=== PATIENT | female | born 1935 | race Caucasian/White ===

== ENCOUNTER 2021-06-24 13:29 | Inpatient (IN) | payer MEDICAID ==
[~2021-06-24] VITALS: Ht 142.2 cm; Wt 43.1 kg
[2021-06-24] MEDS ORDERED: ONDANSETRON HCL 4MG/2ML INJ IV STA (15:19)
[2021-06-24] MEDS ORDERED: SODIUM CHLORIDE 0.9% 1,000 ML IV ONE (15:30)
[2021-06-24 16:01] LABS: BASOPHILS % 0.3 % (0.0-2.0); EOSINOPHILS % 0.2 % (0.0-5.0); HEMATOCRIT. 37.7 % (36.0-48.0); HEMOGLOBIN. 12.6 g/dL (12.0-16.0); LYMPHOCYTES % 45.8 % (20.0-50.0); MEAN CORPUSCULAR HEMOGLOBIN 28.8 pg (28.0-32.0); MEAN CORPUSCULAR VOLUME 85.9 fL (81.0-99.0); MEAN PLATELET VOLUME 7.7 fl (7.4-10.4); MONOCYTES % 5.4 % (2.0-8.0); NEUTROPHILS % 48.3 % (40.0-76.0); PLATELET 471 x1000/uL (130-400); RED BLOOD CELL COUNT 4.39 mill/uL (4.2-5.4); RED CELL DISTRIBUTION WIDTH 16.9 % (11.6-14.6)
[2021-06-24 16:06] LABS: CHLORIDE 101 mEq/L (98-107)
[2021-06-24] MEDS ORDERED: IOHEXOL-300 100 ML BOTTLE ONE (18:18)
[2021-06-24] MEDS ORDERED: PIPERACILLIN/TAZ 3.375G PREMIX 50 ML IV ONE (18:30)
[2021-06-24 20:55] VITALS: BP 120/61
[2021-06-24 21:00] VITALS: BP 120/61
[2021-06-24] MEDS ORDERED: CEFTRIAXONE 1 G PREMIX 50 ML IV SCH (21:45)
[2021-06-24] MEDS ORDERED: IPRATROPIUM/ALBUTEROL 0.5-3(2.5)MG/3ML NEB NEB PRN (21:45)
[2021-06-24] MEDS ORDERED: HYDROCODONE/ACETAMINOPHEN 5/325MG TABLET PO PRN (21:45)
[2021-06-24] MEDS ORDERED: ONDANSETRON HCL 4MG/2ML INJ IV PRN (21:45)
[2021-06-24] MEDS: SODIUM CHLORIDE 0.9% 1,000 ML IV SCH (21:45)
[2021-06-24] MEDS ORDERED: CLONIDINE 0.1MG TABLET PO PRN (21:45)
[2021-06-24] MEDS ORDERED: DOCUSATE SODIUM 100MG CAPSULE PO PRN (21:45)
[2021-06-24 23:28] LABS: CHLORIDE 104 mEq/L (98-107)
[2021-06-25] VITALS: BP 126/58
[2021-06-25] MEDS: CEFTRIAXONE 1,000 MG in DEXTROSE 5% WATER 50 ML IV SCH ×2 (00:17→20:46)
[2021-06-25] MEDS: ENOXAPARIN 30MG/0.3ML SYR SUBCUT SCH ×2 (00:17→20:46)
[2021-06-25] MEDS: METRONIDAZOLE 500 MG PREMIX 100 ML IV SCH ×3 (01:13→13:58)
[2021-06-25 04:00] VITALS: BP 100/64
[2021-06-25 06:57] LABS: BASOPHILS % 0.6 % (0.0-2.0); EOSINOPHILS % 0.5 % (0.0-5.0); HEMATOCRIT. 32.2 % (36.0-48.0); LYMPHOCYTES % 35.2 % (20.0-50.0); MEAN CORPUSCULAR HEMOGLOBIN 29.4 pg (28.0-32.0); MEAN PLATELET VOLUME 8.1 fl (7.4-10.4); MONOCYTES % 10.8 % (2.0-8.0); NEUTROPHILS % 52.9 % (40.0-76.0); PLATELET 350 x1000/uL (130-400); RED BLOOD CELL COUNT 3.75 mill/uL (4.2-5.4); RED CELL DISTRIBUTION WIDTH 15.6 % (11.6-14.6)
[2021-06-25 08:00] VITALS: BP 121/70
[2021-06-25] MEDS ORDERED: KCL 20MEQ/100ML PREMIX 100 ML IV ONE (10:00)
[2021-06-25] MEDS ORDERED: LOPE2CAP14 PO (10:23)
[2021-06-25] MEDS ORDERED: AMLO10TA80 MT (10:23)
[2021-06-25] MEDS ORDERED: MECL-217 MT (10:23)
[2021-06-25] MEDS ORDERED: ALBU6.7H9 INH (10:23)
[2021-06-25] MEDS ORDERED: PANT40TA51 MT (10:23)
[2021-06-25] MEDS ORDERED: ONDA4TAB50 MT (10:23)
[2021-06-25] MEDS ORDERED: PROM6.254 MT (10:23)
[2021-06-25 12:00] VITALS: BP_SYST 112; BP_SYST 122; BP_DIAS 57; BP_DIAS 71
[2021-06-25 16:00] VITALS: BP_SYST 120; BP_SYST 128; BP_DIAS 68; BP_DIAS 69
[2021-06-25 20:00] VITALS: BP 114/63
[2021-06-25] MEDS: METRONIDAZOLE 500MG TABLET PO SCH (20:46)
[2021-06-26] VITALS: BP 125/70
[2021-06-26 04:00] VITALS: BP 120/66
[2021-06-26] MEDS: METRONIDAZOLE 500MG TABLET PO SCH ×3 (06:19→22:09)
[2021-06-26 08:00] VITALS: BP 126/60
[2021-06-26 08:28] LABS: BASOPHILS % 0.5 % (0.0-2.0); EOSINOPHILS % 0.6 % (0.0-5.0); HEMATOCRIT. 33.6 % (36.0-48.0); HEMOGLOBIN. 11.2 g/dL (12.0-16.0); MEAN CORPUSCULAR HEMOGLOBIN 29.2 pg (28.0-32.0); MEAN CORPUSCULAR VOLUME 87.2 fL (81.0-99.0); MEAN PLATELET VOLUME 8.2 fl (7.4-10.4); MONOCYTES % 7.9 % (2.0-8.0); PLATELET 342 x1000/uL (130-400); RED BLOOD CELL COUNT 3.86 mill/uL (4.2-5.4); RED CELL DISTRIBUTION WIDTH 15.9 % (11.6-14.6)
[2021-06-26 08:48] LABS: CHLORIDE 102 mEq/L (98-107)
[2021-06-26 12:00] VITALS: BP 99/64
[2021-06-26] MEDS ORDERED: POTASSIUM CHLORIDE 20MEQ/PACKET PO SCH (13:00)
[2021-06-26] MEDS ORDERED: METRONIDAZOLE 500 MG PREMIX 100 ML IV SCH (13:00)
[2021-06-26] MEDS ORDERED: KCL 20MEQ/100ML PREMIX 100 ML IV SCH (14:00)
[2021-06-26 16:00] VITALS: BP 105/63
[2021-06-26 20:00] VITALS: BP 118/66
[2021-06-26] MEDS: ENOXAPARIN 30MG/0.3ML SYR SUBCUT SCH (22:10)
[2021-06-26] MEDS: CEFTRIAXONE 1,000 MG in DEXTROSE 5% WATER 50 ML IV SCH (22:10)
[2021-06-26] MEDS: SODIUM CHLORIDE 0.9% 1,000 ML IV SCH (22:11)
[2021-06-27] VITALS: BP 136/55
[2021-06-27 04:00] VITALS: BP 126/69
[2021-06-27] MEDS: METRONIDAZOLE 500MG TABLET PO SCH ×3 (05:28→21:46)
[2021-06-27 07:10] LABS: BASOPHILS % 0.7 % (0.0-2.0); EOSINOPHILS % 0.5 % (0.0-5.0); LYMPHOCYTES % 48.9 % (20.0-50.0); MEAN CORPUSCULAR HEMOGLOBIN 28.9 pg (28.0-32.0); MEAN CORPUSCULAR VOLUME 86.8 fL (81.0-99.0); MEAN PLATELET VOLUME 7.8 fl (7.4-10.4); MONOCYTES % 7.9 % (2.0-8.0); PLATELET 352 x1000/uL (130-400)
[2021-06-27 07:22] LABS: CHLORIDE 107 mEq/L (98-107)
[2021-06-27 08:00] VITALS: BP 132/69
[2021-06-27] MEDS ORDERED: POTASSIUM CHLORIDE 20MEQ/PACKET PO NR (08:45)
[2021-06-27] MEDS ORDERED: POTASSIUM CHLORIDE INJ 40 MEQ in DEXT 5% WATER 500 ML IV NR (10:00)
[2021-06-27 12:00] VITALS: BP 126/68
[2021-06-27] MEDS ORDERED: NALOXONE HCL 0.4MG/ML VIAL IV PRN (15:00)
[2021-06-27 16:00] VITALS: BP 123/63
[2021-06-27] MEDS: SODIUM CHLORIDE 0.9% 1,000 ML IV SCH (16:25)
[2021-06-27 20:00] VITALS: BP 131/80
[2021-06-27] MEDS: ENOXAPARIN 30MG/0.3ML SYR SUBCUT SCH (21:00)
[2021-06-27] MEDS: CEFTRIAXONE 1,000 MG in DEXTROSE 5% WATER 50 ML IV SCH (23:43)
[2021-06-28] VITALS: BP 127/74
[2021-06-28 04:00] VITALS: BP 132/75
[2021-06-28 06:09] LABS: BASOPHILS % 0.6 % (0.0-2.0); EOSINOPHILS % 0.6 % (0.0-5.0); HEMATOCRIT. 34.8 % (36.0-48.0); HEMOGLOBIN. 11.5 g/dL (12.0-16.0); MEAN CORPUSCULAR HEMOGLOBIN 29.2 pg (28.0-32.0); MEAN PLATELET VOLUME 7.8 fl (7.4-10.4); MONOCYTES % 9.2 % (2.0-8.0); NEUTROPHILS % 58.6 % (40.0-76.0); PLATELET 326 x1000/uL (130-400); RED BLOOD CELL COUNT 3.96 mill/uL (4.2-5.4); RED CELL DISTRIBUTION WIDTH 15.8 % (11.6-14.6)
[2021-06-28] MEDS: METRONIDAZOLE 500MG TABLET PO SCH ×3 (06:14→21:16)
[2021-06-28 06:19] LABS: CHLORIDE 112 mEq/L (98-107)
[2021-06-28 08:00] VITALS: BP 128/71
[2021-06-28] MEDS ORDERED: POTASSIUM CHLORIDE 20MEQ/PACKET PO NR (09:00)
[2021-06-28] MEDS ORDERED: POTASSIUM CHLORIDE INJ 40 MEQ in DEXT 5% WATER 500 ML IV NR (10:00)
[2021-06-28] MEDS: SODIUM CHLORIDE 0.9% 1,000 ML IV SCH (10:37)
[2021-06-28 12:00] VITALS: BP 132/75
[2021-06-28 16:00] VITALS: BP 133/73
[2021-06-28 20:00] VITALS: BP 140/80
[2021-06-28] MEDS: ENOXAPARIN 30MG/0.3ML SYR SUBCUT SCH (21:00)
[2021-06-28] MEDS: CEFTRIAXONE 1,000 MG in DEXTROSE 5% WATER 50 ML IV SCH (22:44)
[2021-06-29] VITALS: BP 126/75
[2021-06-29] MEDS: SODIUM CHLORIDE 0.9% 1,000 ML IV SCH ×2 (01:18→17:55)
[2021-06-29 04:00] VITALS: BP 129/75
[2021-06-29 08:00] VITALS: BP 129/77
[2021-06-29 08:28] LABS: BASOPHILS % 0.8 % (0.0-2.0); HEMATOCRIT. 33.6 % (36.0-48.0); HEMOGLOBIN. 11.4 g/dL (12.0-16.0); LYMPHOCYTES % 36.3 % (20.0-50.0); MEAN CORPUSCULAR HEMOGLOBIN 29.7 pg (28.0-32.0); MEAN CORPUSCULAR VOLUME 87.1 fL (81.0-99.0); MEAN PLATELET VOLUME 8.1 fl (7.4-10.4); MONOCYTES % 9.4 % (2.0-8.0); NEUTROPHILS % 52.5 % (40.0-76.0); PLATELET 304 x1000/uL (130-400); RED BLOOD CELL COUNT 3.85 mill/uL (4.2-5.4)
[2021-06-29 09:03] LABS: CHLORIDE 110 mEq/L (98-107)
[2021-06-29] MEDS ORDERED: POTASSIUM CHLORIDE 20MEQ/PACKET PO NR (11:30)
[2021-06-29 12:00] VITALS: BP 113/66
[2021-06-29] MEDS ORDERED: METRONIDAZOLE 500 MG PREMIX 100 ML IV SCH (14:45)
[2021-06-29 16:12] VITALS: BP 128/67
[2021-06-29] MEDS: METRONIDAZOLE 500MG TABLET PO SCH (18:26)
[2021-06-29 20:00] VITALS: BP 122/60
[2021-06-29] MEDS: ENOXAPARIN 30MG/0.3ML SYR SUBCUT SCH (21:53)
[2021-06-29] MEDS ORDERED: CEFTRIAXONE 1,000 MG in DEXTROSE 5% WATER 50 ML IV SCH (23:00)
[2021-06-30] VITALS: BP 130/76
[2021-06-30 04:00] VITALS: BP 129/77
[2021-06-30 07:26] LABS: BASOPHILS % 1.1 % (0.0-2.0); EOSINOPHILS % 0.7 % (0.0-5.0); HEMATOCRIT. 35.3 % (36.0-48.0); HEMOGLOBIN. 12.1 g/dL (12.0-16.0); LYMPHOCYTES % 45.9 % (20.0-50.0); MEAN CORPUSCULAR HEMOGLOBIN 29.8 pg (28.0-32.0); MEAN CORPUSCULAR VOLUME 86.6 fL (81.0-99.0); MEAN PLATELET VOLUME 8.2 fl (7.4-10.4); MONOCYTES % 8.4 % (2.0-8.0); NEUTROPHILS % 43.9 % (40.0-76.0); PLATELET 294 x1000/uL (130-400); RED BLOOD CELL COUNT 4.07 mill/uL (4.2-5.4); RED CELL DISTRIBUTION WIDTH 15.8 % (11.6-14.6)
[2021-06-30 07:29] LABS: CHLORIDE 109 mEq/L (98-107)
[2021-06-30 08:00] VITALS: BP 148/81
[2021-06-30] MEDS: METRONIDAZOLE 500MG TABLET PO SCH ×2 (08:54→12:47)
[2021-06-30] MEDS ORDERED: POTASSIUM CHLORIDE 20MEQ/PACKET PO NR (10:45)
[2021-06-30 12:00] VITALS: BP 144/85
[2021-06-30] MEDS ORDERED: AMOX-424 MT (12:10)
[2021-06-30] MEDS: SODIUM CHLORIDE 0.9% 1,000 ML IV SCH (12:47)
[2021-06-30 14:36] VITALS: BP 144/85
== END 2021-06-30 19:14 | disposition home or self-care (01) | DRG 244 ==
LOC: ER 13:29 → 6EST 19:04 → ENRESERV 20:03
PROVIDERS: ADMIT Internal Medicine; ATTEND Internal Medicine
DX: K57.32 Diverticulitis of large intestine without perforation or abscess without bleeding (principal); D64.9 Anemia, unspecified; I10 Essential (primary) hypertension; K63.89 Other specified diseases of intestine; K86.9 Disease of pancreas, unspecified; J45.909 Unspecified asthma, uncomplicated; Z79.899 Other long term (current) drug therapy; Z90.49 Acquired absence of other specified parts of digestive tract
CPT/HCPCS: 36415; 74177; 80048; 80053; 80061; 82270; 82378; 83605; 84443; 85025; 87015; 87045; 87427; 89055; 99285; A6261; J0696; J1650; J2405; J2543; J3480; J3490; J7030; J7060; Q9967